=== PATIENT | female | born 1995 | race Caucasian/White ===

== ENCOUNTER 2018-11-01 12:34 | Outpatient (CLI) | payer SELFPAY ==
[~2018-11-01] VITALS: Ht 152.4 cm; Wt 68.9 kg
[~2018-11-01 12:34] MED LIST: CALC-143 PO; FERR134T PO; PNV1TABL12 PO
[2018-11-01 12:54] VITALS: Ht 152.4 cm; Wt 68.9 kg
--- NOTE | 2018-11-01 13:35 | PN ---
Triage Information Date/Time November 01, 2018 Reason for visit: Uterine contractions (Denies rupture of membrane no vaginal bleed) Weeks of Gestation 39+ weeks /Para 1 para 0 Diabetes: none Hypertention: none Objective See as per note Heart Rate: 140's Heart Rate Comments Cervix is long and 1 cm posterior Contractions: < 5 Minutes Apart Results/Medications Imaging Results At the time of this writing biophysical profile is pending Disposition: Discharge Assessment/Plan Patient has normal biophysical profile agreed to be DC'd home with follow-up in the clinic QUIRINO BUSTOS MD Nov 01, 2018 13:35
--- NOTE | 2018-11-01 14:36 | TRIAGE ---
OB Triage Datetime Report Generated by CPN: 11/01/2018 14:36 Datetime: 11/01/2018 14:00 Stage of : OB Triage Maternal Assessment Level of Consciousness: Fully Conscious DTR's/Clonus: DTRs 1+ Headache: Denies Breath Sounds, Left: Clear and Equal Breath Sounds, Right: Clear and Equal Nausea/Vomiting: Denies RUQ Epigastric Pain: Denies Labor Evaluation Frequency: 2-12 Monitor Mode: External Duration (sec)2399: 50-60 Quality: Mild Pattern: Normal: <= 5 Contractions in 10 Minutes Resting Tone [place]: Relaxed Heart Rate FHR Baseline Rate: 135 Monitor Mode: External US Variability: Moderate 6-25 bpm Accelerations: 15X15 Decelerations: None Category: Category I Pain Assessment Pain Scale: 3 Pain Presence: Intermittent Pain Type: Cramping Pain Location: Back Pain Goal: 3 Vaginal Exam Membrane Status: Intact Datetime: 11/01/2018 12:58 Maternal Assessment Level of Consciousness: Fully Conscious DTR's/Clonus: DTRs 1+ Headache: Denies Blurred Vision: No Respiratory Effort: Unlabored Breath Sounds, Left: Clear and Equal Breath Sounds, Right: Clear and Equal Nausea/Vomiting: Denies RUQ Epigastric Pain: Denies Facial Edema: None Labor Evaluation Frequency: 2-5 Monitor Mode: External Duration (sec)2399: 50-60 Quality: Mild Pattern: Normal: <= 5 Contractions in 10 Minutes Resting Tone [place]: Relaxed Heart Rate FHR Baseline Rate: 135 Monitor Mode: External US Variability: Moderate 6-25 bpm Accelerations: 15X15 Decelerations: None Category: Category I Pain Assessment Pain Scale: 3 Pain Presence: Intermittent Pain Type: Cramping Pain Location: Back Pain Goal: 3 Vaginal Exam Membrane Status: Intact Datetime: 11/01/2018 12:50 Stage of : OB Triage Assessment Type: Triage Datetime: 11/01/2018 12:30 Assessment Type: Triage Maternal Assessment Level of Consciousness: Fully Conscious DTR's/Clonus: DTRs 2+; No Clonus Headache: Denies Blurred Vision: No Respiratory Effort: Unlabored; Regular Rhythm; Equal Expansion Breath Sounds, Left: Clear and Equal Breath Sounds, Right: Clear and Equal Nausea/Vomiting: Denies RUQ Epigastric Pain: Denies Lower Extremities Edema: None Degree: None Upper Extremities Edema: None Degree: None Facial Edema: None Fall Risk Assessment History of Falling: (0) No Secondary Diagnosis: (0) No Ambulatory Aid: (0) Bedrest/Nurse Assist IV Therapy: (0) No Gait: (0) Normal/Bedrest/Immobile Mental Status: (0) Oriented to Own Ability Fall Score: 0 Fall Risk Score Definition: No Risk: No action required Datetime: 11/01/2018 12:21 Time of Arrival: 11/01/2018 12:21 EGA: 39.5 Arrived By: Ambulatory Arrived From: Home Chief Complaint: PT CAME IN C/O UC'S Movement: Present Contractions: Occasional Rupture of Membranes: Denies Vaginal Discharge: Denies Recent Sexual Intercouse: Denies Abdominal Trauma: Not Applicable Additional Patient Complaints: NONE Time Provider Notified: 11/01/2018 12:50 Provider Notified: JOVANA Initial Plan: MONITOR AND VE Datetime: 10/26/2018 05:20 Fall Score: 0 Fall Risk Score Definition: No Risk: No action required Datetime: 10/26/2018 05:05 EGA: 38.6
== END 2018-11-01 14:30 | disposition home or self-care (01) ==
LOC: OBT 12:34 → L-D 12:35 → OBT 14:30
PROVIDERS: ATTEND Obstetrics & Gynecology
DX: O62.9 Abnormality of forces of labor, unspecified (principal); Z3A.39 39 weeks gestation of pregnancy
CPT/HCPCS: 76815; 76818; G0463

== ENCOUNTER 2018-11-02 03:35 | Inpatient (IN) | payer SELFPAY ==
[~2018-11-02] VITALS: Ht 154.9 cm; Wt 67.5 kg
[2018-11-02 03:22] VITALS: Ht 154.9 cm; Wt 67.5 kg
[2018-11-02 03:38] VITALS: BP 109/61; PULSE 78; RESP 18
[2018-11-02] MEDS ORDERED: CARBOPROST 250 MCG INJ IM PRN ×2 (05:00→17:30)
[2018-11-02] MEDS ORDERED: TERBUTALINE 1 MG/ML INJ SC ONE (05:00)
[2018-11-02] MEDS ORDERED: OXYTOCIN 30 UNITS/LR 500 ML IV PRN ×2 (05:00→17:30)
[2018-11-02] MEDS ORDERED: CEFAZOLIN 2 GM/50 ML (PMX) 50 ML IVPB SCH ×2 (05:00→17:30)
[2018-11-02] MEDS ORDERED: METHYLERGONOVINE 0.2 MG INJ IM PRN ×2 (05:00→17:30)
[2018-11-02] MEDS ORDERED: MISOPROSTOL 200 MCG TAB PR PRN ×2 (05:00→17:30)
--- NOTE | 2018-11-02 05:31 | TRIAGE ---
OB Triage Datetime Report Generated by CPN: 11/02/2018 05:30 Datetime: 11/02/2018 05:00 Frequency: 4-6 Monitor Mode: External Duration (sec)2399: 50-180 Pattern: Normal: <= 5 Contractions in 10 Minutes FHR Baseline Rate: 125 Monitor Mode: External US Variability: Moderate 6-25 bpm Accelerations: 15X15 Decelerations: None Category: Category I Datetime: 11/02/2018 04:44 Quality: Moderate Resting Tone [place]: Relaxed Pain Scale: 7 Pain Presence: Intermittent Pain Type: Contraction Pain Location: Abdomen Pain Relief Measures: Comfort Measures Datetime: 11/02/2018 04:01 Dilatation (cms): 3.0 Effacement (%): 70 Station: -2 Exam By: Iliana Kelley RN Membrane Status: Intact Vaginal Bleeding: None Cervix, Consistency: Soft Cervix, Position: Posterior Datetime: 11/02/2018 04:00 Frequency: 5 Monitor Mode: External Duration (sec)2399: 90-120 Pattern: Normal: <= 5 Contractions in 10 Minutes FHR Baseline Rate: 130 Monitor Mode: External US Variability: Minimal - Undetectable to <=5 bpm Accelerations: 15X15 Decelerations: None Category: Category II Datetime: 11/02/2018 03:38 Stage of : OB Triage Assessment Type: Triage Level of Consciousness: Fully Conscious DTR's/Clonus: DTRs 2+; No Clonus Headache: Denies Blurred Vision: No Respiratory Effort: Unlabored; Regular Rhythm; Equal Expansion Breath Sounds, Left: Clear and Equal Breath Sounds, Right: Clear and Equal Nausea/Vomiting: Denies RUQ Epigastric Pain: Denies Lower Extremities Edema: None Degree: None Upper Extremities Edema: None Degree: None Facial Edema: None Temperature Route: Oral History of Falling: (0) No Secondary Diagnosis: (0) No Ambulatory Aid: (0) Bedrest/Nurse Assist IV Therapy: (0) No Gait: (0) Normal/Bedrest/Immobile Mental Status: (0) Oriented to Own Ability Fall Score: 0 Fall Risk Score Definition: No Risk: No action required Comments: Patient states she feels active movement. Pain Scale: 5 Pain Presence: Intermittent Pain Type: Contraction Pain Location: Abdomen Pain Relief Measures: Comfort Measures Datetime: 11/02/2018 03:22 Time of Arrival: 11/02/2018 03:22 EGA: 39.6 Arrived By: Wheelchair Arrived From: Home Chief Complaint: strong contractions since 11/02/18 @ 0100 Movement: Present Contractions: Irregular Rupture of Membranes: Denies Vaginal Bleeding: None Vaginal Discharge: Denies Recent Sexual Intercouse: Denies Abdominal Trauma: Not Applicable Patient Complaints: Contractions Time Provider Notified: 11/02/2018 04:08 Provider Notified: Dr. Sanchez Initial Plan: EFM x2, SVE Datetime: 11/01/2018 14:35 Stage of : OB Triage Level of Consciousness: Fully Conscious DTR's/Clonus: DTRs 1+ Headache: Denies Breath Sounds, Left: Clear and Equal Breath Sounds, Right: Clear and Equal Nausea/Vomiting: Denies RUQ Epigastric Pain: Denies Frequency: OCC Monitor Mode: External Duration (sec)2399: 40-90 Quality: Mild Pattern: Normal: <= 5 Contractions in 10 Minutes Resting Tone [place]: Relaxed FHR Baseline Rate: 135 Monitor Mode: External US Variability: Moderate 6-25 bpm Accelerations: 15X15 Decelerations: None Category: Category I Pain Scale: 3 Pain Presence: Intermittent Pain Type: Cramping Pain Location: Back Pain Goal: 3 Membrane Status: Intact Datetime: 11/01/2018 12:30 Fall Score: 0 Fall Risk Score Definition: No Risk: No action required Datetime: 11/01/2018 12:21 EGA: 39.5 Datetime: 10/26/2018 05:20 Fall Score: 0 Fall Risk Score Definition: No Risk: No action required Datetime: 10/26/2018 05:05 EGA: 38.6
[2018-11-02] MEDS: LACTATED RINGER'S 1,000 ML IV SCH ×2 (05:43→10:44)
[2018-11-02] MEDS ORDERED: PHENYLephrine (100 MCG/ML) 5ML SYG ONE (07:00)
[2018-11-02] MEDS ORDERED: OXYTOCIN 30 UNITS/LR 500 ML IV SCH (10:30)
--- NOTE | 2018-11-02 13:44 | PREAC ---
Date/Time of Note Date/Time of Note DATE: 11/02/18 TIME: 13:43 Anesthesia Eval and Record Evaluation Time Pre-Procedure Interview DATE: 11/02/18 TIME: 13:43 Age 23 Sex female NPO: 8 hrs Preoperative diagnosis iup at 39 weeks with breech presentation Planned procedure primary c section Past Medical History Past Medical History: None Surgery & Anesthesia Issues No known issue Meds Anticoagulation: No Beta Román within 24 hr: No Reason Beta Román not given: Pt. not on B-Román Reported Medications Calcium Citrate/Vitamin D (Citracal-Vitamin D 200 MG-250) 1 Each Tablet, 1 EACH PO DAILY, TAB 10/26/18 Pnv Cmb#21/Iron/Folic Acid ( Complete Caplet) 1 Each Tablet, 1 EACH PO DAILY, TAB 10/26/18 Ferrous Sulfate (Iron) 134 Mg Tablet, 134 MG PO DAILY, TAB 10/26/18 Current Medications Cefazolin Sodium/ Dextrose 50 ml @ 100 mls/hr ONCE IVPB ; Start 11/02/18 at 05:00 Oxytocin/Lactated Ringer's 500 ml @ 0 mls/hr ONCE PRN IV VAGINAL BLEEDING; Start 11/02/18 at 05:00 Methylergonovine Maleate (Methergine) 0.2 mg ONCE PRN IM VAGINAL BLEEDING; Start 11/02/18 at 05:00 Carboprost Tromethamine (Hemabate) 250 mcg ONCE PRN IM VAGINAL BLEEDING; Start 11/02/18 at 05:00 Misoprostol (Cytotec) 1,000 mcg ONCE PRN [place] VAGINAL BLEEDING; Start 11/02/18 at 05:00 Lactated Ringer's 1,000 ml @ 125 mls/hr Q8H IV Last administered on 11/02/18at 10:44; Admin Dose 125 MLS/HR; Start 11/02/18 at 05:33 Oxytocin/Lactated Ringer's 500 ml @ 125 mls/hr POST IV ; Start 11/02/18 at 10:30 Meds reviewed: Yes Allergies Coded Allergies: No Known Allergy (Unverified , 11/02/18) Allergies Reviewed: Yes Labs/Studies Labs Reviewed: Reviewed by anesthesiologist Result Diagram: 11/02/18 0530 Laboratory Tests 11/02/18 05:30 Blood Bank Test 11/02/18 05:30 Antibody Screen NEGATIVE Blood Type B POSITIVE Rh Immune Globulin Candidate NO test: Positive Pre-procedure Exam Last vitals Vital Signs Date Temp Pulse Resp B/P (MAP) Pulse Ox O2 O2 Flow FiO2 Time Delivery Rate 11/02/18 98.7 78 18 109/61 Room Air 03:38 (77) Airway: Adequate mouth opening, Adequate thyromental dist Mallampati: Mallampati I Teeth: Normal Lung: Normal Heart: Normal ASA Physical Status ASA physical status: 2 Emergency: None Planned Anesthetic Neuraxial: Spinal Planned Pain Management Sub-arachniod narcotics, Parenteral pain med Pre-operative Attestations Prior to commencing anesthesia and surgery, the patient was re-evaluated, there was verification of: *The patient's identity *The results of appropriate recent lab work and preoperative vital signs *The above evaluation not changing prior to induction *Anesthetic plan, risk benefits, alternative and complications discussed with patient/family; questions answered; patient/family understands, accepts and wishes to proceed. WILLIAM TUCKER Nov 02, 2018 13:44
[2018-11-02] MEDS ORDERED: DEXAMETHASONE 4 MG/ML 1 ML INJ ONE (13:56)
[2018-11-02] MEDS ORDERED: ONDANSETRON 4 MG INJ ONE (13:56)
[2018-11-02] MEDS ORDERED: morphine SULFATE/PF (10 MG/10 ML) INJ ONE (14:02)
[2018-11-02] MEDS ORDERED: FENTAnyl 50 MCG/ML VIAL ONE (14:04)
[2018-11-02] MEDS ORDERED: NALOXONE (0.4 MG/ML) INJ IV PRN (14:30)
[2018-11-02] MEDS ORDERED: ZOLPIDEM 5 MG TAB PO PRN (14:30)
[2018-11-02] MEDS ORDERED: HYDROmorphONE 0.5 MG/0.5 ML SYG IV PRN ×2 (14:30)
[2018-11-02] MEDS ORDERED: DIPHENHYDRAMINE 50 MG INJ IV PRN (14:30)
[2018-11-02] MEDS ORDERED: ONDANSETRON 4 MG INJ IV PRN (14:30)
--- NOTE | 2018-11-02 14:51 | HP ---
Date/Time of Note Date/Time of Note DATE: 11/02/18 TIME: 14:45 OB - History Hx of Present Free Text/Dictation 23-year-old female 1 para 0 at term gestation admitted complaining of onset of uterine contractions day before Was seen on day before and was discharged home with uterine contractions and known breech presentation However she referred to OB triage on 11/02/2018 for uterine contractions and elan ch presentation was again confirmed Last Menstrual Period: Jan 16, 2019 Estimated Due Date: Nov 03, 2018 : 1 Para: 0 Care: Good Care Ultrasounds: Normal mid trimester US Obstetrical Complications: None Medical Complications: None Past Family/Social History * Past Medical, Surgical, Family and Obstetric Histories reviewed from chart. Blood Type: O+ Rubella: immune RPR/VDRL: Negative GBS Status: Negative HBsAG: Negative OB Admission Exam Vital Signs Vital Signs Vital Signs Date Temp Pulse Resp B/P (MAP) Pulse Ox O2 O2 Flow FiO2 Time Delivery Rate 11/02/18 98.7 78 18 109/61 Room Air 03:38 (77) Physical Exam HEENT: WNL Heart: Rhythm Normal Lungs: Clear, Equal Abdomen: WNL Extremities: Normal Reflexes: Normal Cervical Dilatation: 2cm Effacement: 50% Station: -3 Membranes: Intact Amniotic Fluid: Clear Heart Rate: 140's Accelerations: Accelerations Present Decelerations: No Decelerations Varibility: Moderate Contractions on Admission: 6-10 Minutes Apart Date/Time Contractions Began: November 01, 2017 9 AM Frequency of Contractions: Every 5-10 minutes Duration: Over 45 seconds Intensity: Mild Last 72 hours Lab Results CBC & BMP 11/02/18 05:30 OB Assessment/Plan Other Assessment: Breech presentation at term Labor pain Other plan: Proceed with primary delivery QUIRINO BUSTOS MD Nov 02, 2018 14:51
[2018-11-02] MEDS ORDERED: KETOROLAC 30 MG INJ IV STA (14:53)
--- NOTE | 2018-11-02 14:53 | OPR ---
Operative Report Planned Procedure Procedure date Nov 02, 2018 Procedure(s) Primary delivery Performed by see signature line Co Founder And Chairman: TODD GARNETT MD Anesthesiologist: WILLIAM TUCKER Pre-procedure diagnosis Breech presentation at 39 weeks and 6 days Labor pains [id number] Anesthesia Type: [id number] spinal Post-Procedure Post-procedure diagnosis Status post primary delivery Findings Live Baby with shahid breech presentation Clear amniotic fluid Estimated Blood Loss: 500 - 600 mls Specimen(s) none Grafts/Implant(s) none Complication(s) none Pt Condition post procedure: stable Disposition: PACU Procedure Description Under satisfactory anaesthesia a Pfannenstiel incision was made two fingerbreadth above and parallel to the symphysis of pubis. Incision was extended laterally to the border of the Recti muscles on either sides. Incision was carried down with sharp and blunt dissection until fascia was reached. Anterior Recti muscle fascia was incised in mid portion and incision extended laterally to the border of skin incision. Fascia was mobilized from muscle superiorly and Recti muscles were from midline using sharp and blunt dissection. Peritoneum was visualized; Avoiding bowel and bladder it was incised . Incision was extended superiorly and inferiorly. Bladder blade was placed. Posterior peritoneum covering the lower segment of the uterus and lower segment of the uterus were incised. Incision was extended laterally to the border of Round Lig. on either sides and baby was delivered via total breech extraction without any difficulty. Amniotic fluid appeared clear. Cord blood was obtained and cord had 3 vessels . Placenta was delivered spontaneously and appeared intact and complete. Intrauterine cavity was rubbed with a laparotomy sponge. Uterine incision was closed in 2 layers using running stitches of No1 Monocryl. Hemostasis appeared secure. Ovaries and Fallopian tubes were within normal limits. Announcing needle, lap sponge and instrument count to be correct abdomen was closed in layers as follows: Peritoneum and Recti muscles with running stitches of 2-0 Vicryl. Fascia with running stitch of No 1 PDS. Subcutaneous tissue with running stitches of 2-0 Monocryl and skin was closed using tin. Patient tolerated the procedure well and was transferred to [facility] in good condition. QUIRINO BUSTOS MD Nov 02, 2018 14:53
[2018-11-02] MEDS ORDERED: AZITHROMYCIN 500MG/NS (PMX) 250 ML IVPB ONE (15:00)
--- NOTE | 2018-11-02 15:24 | PAC ---
Date/Time of Note Date/Time of Note DATE: 11/02/18 TIME: 15:24 Post-Anesthesia Notes Post-Anesthesia Note Last documented vital signs Vital Signs Date Temp Pulse Resp B/P (MAP) Pulse Ox O2 O2 Flow FiO2 Time Delivery Rate 11/02/18 98.7 78 18 109/61 Room Air 1524 (77) Activity: WNL Respiratory function: WNL Cardiovascular function: WNL Mental status: Baseline Pain reasonably controlled: Yes Hydration appropriate: Yes Nausea/Vomiting absent: Yes WILLIAM TUCKER Nov 02, 2018 15:24
[2018-11-02] MEDS ORDERED: LACTATED RINGER'S 1,000 ML IV SCH (17:03)
[2018-11-02 17:30] VITALS: BP 113/63; PULSE 78; RESP 19
[2018-11-02] MEDS ORDERED: HYDROCODONE/APAP (5/325) TAB PO PRN (17:30)
[2018-11-02] MEDS ORDERED: LANOLIN HPA 1 PKT TOP PRN (17:30)
[2018-11-02] MEDS ORDERED: NA PHOSPHATE/BIPHOS 133 ML ENEMA PR PRN (17:30)
[2018-11-02] MEDS: CLINDAMYCIN 300 MG CAP PO SCH (18:00)
[2018-11-02 18:30] VITALS: BP 108/59; PULSE 78; RESP 19
[2018-11-02 19:50] VITALS: BP 103/55; PULSE 76; RESP 18
[2018-11-02] MEDS: SENNA/DOCUSATE NA (8.6MG/50MG) TAB PO SCH (21:00)
[2018-11-02] MEDS: CEFAZOLIN 2 GM/50 ML (PMX) 50 ML IVPB SCH (21:32)
[2018-11-03] VITALS (7 sets, daily range): BP systolic 88–105; BP diastolic 51–58; PULSE 76–97; RESP 17–19
[2018-11-03] MEDS: CLINDAMYCIN 300 MG CAP PO SCH ×4 (00:34→17:42)
[2018-11-03] MEDS: CEFAZOLIN 2 GM/50 ML (PMX) 50 ML IVPB SCH ×2 (04:58→13:10)
[2018-11-03] MEDS: LACTATED RINGER'S 1,000 ML IV SCH ×3 (05:59→22:00)
[2018-11-03] MEDS: KETOROLAC 30 MG INJ IV PRN ×2 (06:51→13:10)
[2018-11-03] MEDS: SENNA/DOCUSATE NA (8.6MG/50MG) TAB PO SCH ×2 (08:57→21:00)
[2018-11-03] MEDS ORDERED: BISACODYL 10 MG SUPP PR ONE (09:00)
[2018-11-03] MEDS: IBUPROFEN 800 MG TAB PO SCH ×2 (14:00→21:52)
--- NOTE | 2018-11-03 15:16 | PN ---
Date/Time of Note Date/Time of Note DATE: 11/03/18 TIME: 15:11 Assessment/Plan VTE Prophylaxis VTE Prophylaxis Intervention: ambulation Lines/Catheters IV Catheter Type (from Nrsg): Peripheral IV Assessment/Plan Assessment/Plan Status post postop day #1 Advance diet and ambulate Continue to monitor vitals Subjective 24 Hr Interval Summary No bowel movement but passing flatus Constitutional: no complaints, improved, ambulates, BM, flatus, urine output Pain Control: well controlled Exam/Review of Systems Vital Signs Vitals Vital Signs Date Temp Pulse Resp B/P (MAP) Pulse Ox O2 O2 Flow FiO2 Time Delivery Rate 11/03/18 98.4 97 19 95/54 (68) 96 Room Air 12:00 Intake and Output 11/02/18 11/02/18 11/03/18 1515:00 23:00 07:00 IntakeIntake Total 2000 ml 300 ml 1050 ml OutputOutput Total 1614 ml 1700 ml BalanceBalance 2000 ml -1314 ml -650 ml Exam Free Text/Dictation Abdomen is soft with present bowel sounds Incision is covered Constitutional: alert, oriented, well developed Psych: no complaints, nl mood/affect Head: normocephalic, atraumatic Eyes: nl conjunctiva, EOMI, nl lids, nl sclera ENMT: nl external ears & nose, nl lips & teeth, nl nasal mucosa & septum, mucosa pink and moist Neck: supple, non-tender Respiratory: clear to auscultation, normal air movement Cardiovascular: regular rate and rhythm, nl pulses Gastrointestinal: soft, nl liver, spleen, non-tender Musculoskeletal: nl extremities to inspection, nl gait and stance Extremities: normal pulses Neurological: POLISHER DIAL II-XII intact, nl mental status, nl speech, nl strength Skin: nl turgor, rash or lesions Lymph: nl lymph nodes Results Result Diagram: 11/03/18 0750 QUIRINO BUSTOS MD Nov 03, 2018 15:16
--- NOTE | 2018-11-03 15:57 | OPPN ---
Date/Time of Note Date/Time of Note DATE: 11/03/18 TIME: 15:56 Anesthesia Follow up Anesthesia Follow up Last documented vital signs Vital Signs Date Temp Pulse Resp B/P (MAP) Pulse Ox O2 O2 Flow FiO2 Time Delivery Rate 11/03/18 98.4 97 19 95/54 (68) 96 Room Air 12:00 Respiratory function: WNL Cardiovascular function: WNL Comments excellent pain management with intrathecal morphine analgesia. no complications WILLIAM TUCKER Nov 03, 2018 15:57
[2018-11-03] MEDS: OXYCODONE/ACETAMINOPHEN (5/325) TAB PO PRN (19:46)
[2018-11-04] MEDS: OXYCODONE/ACETAMINOPHEN (5/325) TAB PO PRN (00:15)
[2018-11-04] MEDS: CLINDAMYCIN 300 MG CAP PO SCH ×4 (00:17→18:00)
[2018-11-04 04:56] VITALS: BP 101/63; PULSE 82; RESP 18
[2018-11-04] MEDS: LACTATED RINGER'S 1,000 ML IV SCH (06:00)
[2018-11-04] MEDS: IBUPROFEN 800 MG TAB PO SCH ×2 (06:04→14:24)
[2018-11-04 07:40] VITALS: BP 97/59; PULSE 70; RESP 18
[2018-11-04] MEDS: SENNA/DOCUSATE NA (8.6MG/50MG) TAB PO SCH (09:59)
--- NOTE | 2018-11-04 12:50 | DS ---
Date/Time of Note Date/Time of Note DATE: 11/04/18 TIME: 12:49 Obstetrical Discharge Record Final Diagnosis Final Diagnosis: Term delivered Other Final Diagnosis Status post Section Section: Primary Primary Indication Breech Condition on Discharge Physical Assessment Last Vitals: See nurse's notes Voiding: Yes Bowel Movement: Yes Breast: Soft, non-tender, Filling Fundus: Firm Abdomen and Incision: Abdomen is soft with present bowel sounds Incision is without induration and or erythema appears to be healing well Calf Tenderness: No Patient Condition: Good QUIRINO BUSTOS MD Nov 04, 2018 12:50
--- NOTE | 2018-11-04 12:55 | DS ---
Date/Time of Note Date/Time of Note DATE: 11/04/18 TIME: 12:51 Discharge Summary Admission/Discharge Info Admit Date/Time Nov 02, 2018 at 04:48 Discharge Date/Time November 04, 2017 Discharge Diagnosis Status post primary section for breech presentation Patient Condition: Good Procedures Primary section Hx of Present Illness 23-year-old female underwent primary section Hospital Course Patient tolerated diet very well had a spontaneous bowel movement and was discharged home on the third day with good prognosis and condition Hospital course remained uncomplicated Home Meds Reported Medications Calcium Citrate/Vitamin D (Citracal-Vitamin D 200 MG-250) 1 Each Tablet, 1 EACH PO DAILY, TAB 10/26/18 Pnv Cmb#21/Iron/Folic Acid ( Complete Caplet) 1 Each Tablet, 1 EACH PO DAILY, TAB 10/26/18 Ferrous Sulfate (Iron) 134 Mg Tablet, 134 MG PO DAILY, TAB 10/26/18 Follow-up Plan To 3 days in clinic for staple removal Primary Care Provider Care Physician No Primary Time spent on discharge: > 30 minutes QUIRINO BUSTOS MD Nov 04, 2018 12:55
--- NOTE | 2018-11-04 12:56 | PD.PPDC ---
CLAY PUDDLER Discharge Instruction Provider Information Physician Information 23-year-old female admitted and noticed to have breech presentation and had primary Diagnosis [id number] Final Diagnosis: [id number] Status post section Condition [id number] Patient Condition: Jisgv7i Good Diet Oplnu9Oh Diet: Oidns0m Resume Regular Diet Activity/Restrictions [id number] Activity: Fziec9w May Shower [id number] Restrictions: [id number] No Exercising No Lifting Nothing in the Vagina Wound/Drain Care Instructions [id number] Wound/Drain Care Instructions: [id number] Keep clean and dry Follow-up Follow-up with Physician: 2, 3, Day/Days (In clinic for staple removal) Return to clinic for [id number] 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
[2018-11-04] MEDS ORDERED: IBUP800T48 PO (12:57)
[2018-11-04] MEDS ORDERED: ACET325T33 PO (12:57)
[2018-11-04] MEDS: ACETAMINOPHEN 325 MG TAB PO SCH ×2 (13:21→19:00)
[2018-11-04 16:10] VITALS: BP 104/59; PULSE 88; RESP 18
[2018-11-05] MEDS ORDERED: IBUP800T48 PO (03:29)
[2018-11-05] MEDS ORDERED: MEASLES,MUMPS,RUBELLA VACCINE INJ SC* ONE (09:00)
[2018-11-05] MEDS ORDERED: DIPHTH/TET/ACEL PERTUSS (ADULT) 0.5 ML VIAL IM* ONE (09:00)
== END 2018-11-04 19:15 | disposition home or self-care (01) | DRG 788 ==
LOC: OBT 03:35 → L-D 03:35 → OBT 04:48 → L-D 04:48 → PP1 17:25
PROVIDERS: ADMIT Obstetrics & Gynecology; ATTEND Obstetrics & Gynecology
PROC: 3E033VJ Introduction of Other Hormone into Peripheral Vein, Percutaneous Approach (ICD-10-PCS; 2018-11-02)
PROC: 10D00Z1 Extraction of Products of Conception, Low, Open Approach (ICD-10-PCS; principal; 2018-11-02 13:30)
DX: O32.1XX0 Maternal care for breech presentation, not applicable or unspecified (principal); Z3A.39 39 weeks gestation of pregnancy; Z37.0 Single live birth
CPT/HCPCS: 76815; 85025; 85610; 85730; 86592; 86850; 86900; 86901; 87340; 99464; G0463; J0456; J0690; J1100; J1885; J2274; J2370; J2405; J2590; J3010; J3105; J7120

== ENCOUNTER 2018-11-05 01:48 | Emergency (ER) | payer SELFPAY ==
[~2018-11-05] VITALS: Wt 64.5 kg
[~2018-11-05 01:48] MED LIST changes: +ACET325T33 PO; +IBUP800T48 PO
[2018-11-05 01:54] VITALS: BP 108/55; PULSE 88; RESP 18
[2018-11-05] MEDS ORDERED: IBUP800T48 PO (03:29)
[2018-11-05] MEDS ORDERED: IBUPROFEN 800 MG TAB PO ONE (03:30)
--- NOTE | 2018-11-05 04:26 | ERD ---
ER Documentation Chief Complaint Chief Complaint POST OP C SECTION PAIN; BREAST PAIN S/P DELIVERY 2 DAYS AGO HPI This is a 23-year-old female who just recently gave 2 days ago to a baby boy via section. Patient is presenting along has been with complains of breast engorgement that is been occurring for the past 2 hours. Patient has not had a lot of milk letdown and started to develop breast pain. Patient also admits to some pain along . Denies fever, chills, abdominal pain, nausea, vomiting, diarrhea, constipation and all other symptoms. Patient states that she was unable to fill her ibuprofen 800 mg prescription and she has not been taking pain medication after the section besides Tylenol. ROS All systems reviewed and are negative except as per history of present illness. Medications Home Meds Active Scripts Ibuprofen* (Motrin*) 800 Mg Tab, 800 MG PO Q6, #30 TAB Prov:TED IBARRA PA-C 11/05/18 Ibuprofen* (Motrin*) 800 Mg Tab, 800 MG PO Q8, #60 TAB 0 Refills Prov:QUIRINO BUSTOS MD 11/04/18 Acetaminophen* (Tylenol*) 325 Mg Tablet, 650 MG PO Q6H, #60 TAB 0 Refills Prov:QUIRINO BUSTOS MD 11/04/18 Reported Medications Calcium Citrate/Vitamin D (Citracal-Vitamin D 200 MG-250) 1 Each Tablet, 1 EACH PO DAILY, TAB 10/26/18 Pnv Cmb#21/Iron/Folic Acid ( Complete Caplet) 1 Each Tablet, 1 EACH PO DAILY, TAB 10/26/18 Ferrous Sulfate (Iron) 134 Mg Tablet, 134 MG PO DAILY, TAB 10/26/18 Allergies Allergies: Coded Allergies: No Known Allergy (Unverified , 11/02/18) PMhx/Soc Medical and Surgical Hx: pt denies Medical Hx, pt denies Surgical Hx History of Surgery: Yes () Hx Alcohol Use: No Hx Substance Use: No Hx Tobacco Use: No Smoking Status: Never smoker FmHx Family History: No diabetes Physical Exam Vitals Vital Signs Date Temp Pulse Resp B/P (MAP) Pulse Ox O2 O2 Flow FiO2 Time Delivery Rate 11/05/18 96.5 88 18 108/55 96 01:54 (72) Physical Exam Physical Exam Vitals signs: Reviewed by me. General: Well developed, well nourished, in mild distress. Patient is awake and alert. Head: Normocephalic, atraumatic. Eyes: Normal conjunctiva, Pupils PERRLA, EOM intact grossly ENT: Pharynx is clear, Moist mucous membranes, external ears, nose and mouth normal Breast: Breasts are pendulous, engorged and mildly tender to palpation, no fluctuant mass palpated, no redness, swelling, warmth or evidence of infection Neck: Supple, no masses, lymphadenopathy or JVD Respiratory: Clear to auscultation bilaterally with no wheezing, rhonchi, rales, no distress Cardiovascular: RRR, no murmurs, rubs, or gallops Abdominal: Soft, non-tender, non-distended, no peritoneal signs Neurologic: Alert and oriented, moving all extremities, normal speech, no focal weakness, no cerebellar signs. Normal mentation Skin: warm and dry, No rash, there is tin in place on patient's lower pelvis were section was performed, no dehiscence, no redness, swelling, purulent drainage Psych: Normal mood Results 24 hrs Current Medications Medications Dose Sig/Rajesh Start Time Status Last (Trade) Ordered Route PRN Stop Time Admin Dose Reason Admin Ibuprofen 800 mg ONCE ONCE 11/05/18 DC 11/05/18 (Motrin) PO 03:30 03:39 11/05/18 03:32 Procedures/MDM ER COURSE: The patient was given ibuprofen The medication was well tolerated and the patient reports improvement in symptoms. The patient was stable throughout ED course. I kept the patient and/or family informed of laboratory and diagnostic imaging results throughout the emergency room course. The patient was promptly evaluated and a treatment plan was devised based on H&P and other data. This plan was discussed with the patient who agreed and had no further questions or concerns prior to discharge. MEDICAL DECISION MAKING: This is a 23-year-old female who recently gave to baby boy 2 days ago via section who presents ED with engorgement of breasts. I advised patient that she needs to apply warm compress to the breast as well as continue breast- feeding as she needs to let the milk come down and that will relieve the pain. Patient was given ibuprofen and reports feeling better. At this time there is no gynecologic emergency. There is no evidence of infection or dehiscence of the section wound. No evidence of sepsis, mastitis, breast abscess, among others. Vitals are stable patient can be managed close outpatient follow- up. Advised patient follow-up with her OB die caster in the next 24 hours. Return to ED with any worsening symptoms DISPOSITION PLAN: We discussed follow up with the patient's primary care doctor within 24 to 48 hours. Patient counseled regarding my diagnostic impression and care plan. Prior to discharge all questions answered. Pt agrees with treatment plan and u nderstands strict return precautions. Precautionary instructions provided including instructions to return to the ER if not improving or for any worsening or changing symptoms or concerns. SPECIALIST FOLLOW UP RECOMMENDED: None Patient has been advised to follow up with primary care in 1-2 days. Disclaimer: Inadvertent spelling and grammatical errors are likely due to EHR/dictation software use and do not reflect on the overall quality of patient care. Also, please note that the electronic time recorded on this note does not necessarily reflect the actual time of the patient encounter. Departure Diagnosis: Primary Impression: Breast pain Additional Impression: Engorgement of breast Condition: Stable Patient Instructions: Expressing Breastmilk, Storing Breastmilk, Breast Care After , After a , Anatomy of , : Caring for Yourself Referrals: [facility] Usted se bello hecho un examen mdico de control que le indica que no est en david condicin que requiera tratamiento urgente en el Departamento de Emergencia. Un estudio ms profundo y el tratamiento de nelson condicin pueden esperar sin ningn riesgo hasta que usted sea atendida/o en el consultorio de nelson mdico o david clnica. Es responsabilidad suya arreglar david miguel angel para el seguimiento del jamila. MANEJO DE CONDICIONES NO URGENTES EN EL FUTURO 1) Si usted tiene un mdico de atencin primaria: Usted debera llamar a nelson mdico de atencin primaria antes de venir al departamento de emergencia. Despus de las horas de consultorio, nelson doctor o nelson asociado/a est disponible por telfono. El mdico o enfermero de laura en el servicio telefnico puede asesorarle por fabi medio para atender el problema, o jamila contrario se puede programar david miguel angel. 2) Si usted no tiene un mdico de atencin primaria: Llame al mdico o clnica de referencia que aparece abajo paola las horas de consultorio para hacer david miguel angel para que le vean. CLINICAS: [facility] [phone] [facility] [phone] [facility]. [facility] [phone] [address] [facility] [place] [address] [phone] [facility] [place] [phone] [place] [phone] [place] EDUCATION N[place] [address] [facility] [address] [place], [place] [phone] OFFICE FAX STEVEN ARELLANO [address] [place], [place] [phone] DR. FERGUSON MORAN [address] [place], [place] [phone] DR [facility]MON[address] [facility] [id number] [address], [facility] 707[facility] [id number] QUIRINO LOZANO [address] [place], [place] [phone] [facility] [address] [address] [place], [place] [phone] [facility] [phone] - AMOR GAGNON [address], [facility] [phone] COBOS, FELISA [address] [facility]. [address], [place] [address] [address] CAI, FARID [address] [place] [address] Additional Instructions: Paciente aconseja volver a Departamento de urgencias inmediatamente para sntomas nuevos o que empeoran . Paciente aconseja posteriores con el PCP en 1-2 mcknight . Paciente verbaliza la comprehensin y est de acuerdo con el tratamiento y el curso de accin. Si el paciente no tiene ninguna de atencin primaria pueden seguir con [facility] [address] [place] [address] [facility] + [address] [address] TED IBARRA PA-C Nov 05, 2018 04:26
== END 2018-11-05 03:44 | disposition home or self-care (01) ==
LOC: FTE 01:48
DX: O92.79 Other disorders of lactation (principal)
CPT/HCPCS: 99282